=== PATIENT | female | born 2000 | race Caucasian/White ===

== ENCOUNTER 2025-07-14 13:35 | Outpatient (CLI) | payer OTHER, SELFPAY | END 2025-07-14 13:36 | disposition home or self-care (01) | LOC: NFLDREF 07-15 14:30 | PROVIDERS: PCP Family Medicine; Referring Provider Family Medicine; Visit Provider Nurse Practitioner Family | DX: Z13.6 Encounter for screening for cardiovascular disorders (principal) | CPT/HCPCS: 80061 ==